=== PATIENT | male | born 1975 | race Caucasian/White ===

== ENCOUNTER 2019-01-12 17:55 | Emergency (ER) | payer OTHER ==
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
[2019-01-12] MEDS ORDERED: SODIUM CHLORIDE 0.9% 1,000 ML IV STA (19:21)
[2019-01-12] MEDS ORDERED: METOCLOPRAMIDE 5 MG/ML 2 ML VIAL IVP STA (19:21)
[2019-01-12] MEDS ORDERED: diphenhydrAMINE 50 MG/ML 1 ML VIAL IVP STA (19:21)
[2019-01-12] MEDS ORDERED: KETOROLAC 30 MG/ML 1 ML VIAL IVP STA (19:21)
[2019-01-12 20:31] VITALS: BP 132/90; PULSE 67; RESP 13; TEMP 97.6
--- NOTE | 2019-01-14 03:50 | ED ---
Medical Decision Making - Medical Decision Making Addendum to clarify the patient did not have a loss of consciousness. Disposition Clinical Impression: Headache Disposition: HOME SELF-CARE Condition: Stable Instructions (If sedation given, give patient instructions): Acute Headache (ED) Additional Instructions: Patient to adhere to previously discussed treatment plan and will take medication(s) as directed. Patient to follow up with PCP in 1-2 days. Patient to return to ED if symptoms do not improve. Follow-up with primary care provider tomorrow. Return to ED if condition worsens. Is patient prescribed a controlled substance at d/c from ED?: No Referrals: None,Stated [Primary Care Provider] - 1-2 days [facility] [NON-[facility]FF] - 1-2 days
== END 2019-01-12 20:20 | disposition home or self-care (01) ==
LOC: EC 17:55
DX: R51 Headache (principal); F17.200 Nicotine dependence, unspecified, uncomplicated; F19.10 Other psychoactive substance abuse, uncomplicated; Z86.14 Personal history of Methicillin resistant Staphylococcus aureus infection; Z87.820 Personal history of traumatic brain injury; Y04.2XXA Assault by strike against or bumped into by another person, initial encounter; Y92.89 Other specified places as the place of occurrence of the external cause
CPT/HCPCS: 72125; 70450; 96374; 96375 ×2; 96361; 99284; J1200; J2765; J1885

== ENCOUNTER 2019-06-30 16:20 | Emergency (ER) | payer OTHER ==
[2019-06-30 16:41] VITALS: BP 121/71; PULSE 83; RESP 18; TEMP 97.3
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
== END 2019-06-30 17:09 | disposition home or self-care (01) ==
LOC: EC 16:20
DX: Z02.89 Encounter for other administrative examinations (principal); F17.200 Nicotine dependence, unspecified, uncomplicated
CPT/HCPCS: 99282

== ENCOUNTER 2020-01-12 01:00 | Emergency (ER) | payer OTHER ==
[2020-01-12 01:15] VITALS: BP 129/85; PULSE 91; RESP 18; TEMP 98.2
[2020-01-12] MEDS ORDERED: PENICILLIN VK 500MG STARTER 4 TAB BTL PO STA (01:35)
[2020-01-12] MEDS ORDERED: ACET/COD 300 MG/30 MG STARTER PACK 6 TAB BTL PO STA (01:35)
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
== END 2020-01-12 02:05 | disposition home or self-care (01) ==
LOC: EC 01:00
DX: K04.7 Periapical abscess without sinus (principal); S02.5XXA Fracture of tooth (traumatic), initial encounter for closed fracture; R01.1 Cardiac murmur, unspecified; F17.200 Nicotine dependence, unspecified, uncomplicated; Z86.14 Personal history of Methicillin resistant Staphylococcus aureus infection; X58.XXXA Exposure to other specified factors, initial encounter
CPT/HCPCS: 99283

== ENCOUNTER 2022-09-25 11:03 | Emergency (ER) | payer OTHER ==
[2022-09-25 11:23] VITALS: PULSE 72
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
--- NOTE | 2022-09-25 13:17 | CT ---
EXAMINATION TYPE: CT facial bones wo con CT DLP: 540.6 mGycm, Automated exposure control for dose reduction was used. DATE OF EXAM: 09/25/2022 12:58 PM COMPARISON: 09/25/2022.. CLINICAL INDICATION:Male, 47 years old with history of left sided dental infection, Left sided dental infection TECHNIQUE: Brain: Axial CT images of the brain were obtained with coronal and sagittal reformats created and rev iewed. Contrast used: None. Oral contrast used: None. FINDINGS: Brain: Extra-axial spaces: No abnormal extra-axial fluid collections. Ventricular system: Within normal limits Cerebral parenchyma: No acute intraparenchymal hemorrhage or mass effect. The lopez-white junction is well differentiated. Cerebellum: Unremarkable. Mass effect: No evidence of midline shift. Intracranial vasculature: unremarkable Soft tissues: There is soft tissue swelling involving the left cheek with suspected periodontal absce ss measuring 18 x 11 mm. Evaluation is limited without IV contrast. Multiple roots in this region dem onstrate periapical lucency extending to the soft tissues. Calvarium/osseous structures: No depressed skull fracture. Paranasal sinuses and mastoid air cells: Mild scattered paranasal sinus disease. Visualized orbits: Orbital contents are intact. IMPRESSION: 1. Limited evaluation with phlegmonous change and suspected underlying abscess within the left cheek near the left superior alveolar ridge. These are felt to be secondary to periodontal disease. 2. No facial bone fracture.
[2022-09-25] MEDS ORDERED: AMPICILLIN-SULBACTAM 3 GM in SODIUM CHLORIDE 0.9% 100 ML IVPB SCH (13:45)
[2022-09-25 14:18] LABS: Basophils % (A) 0 %; Eosinophils # (A) 0.9 k/uL (0-0.7); Eosinophils % (A) 9 %; HCT 43.8 % (39.0-53.0); HGB 14.5 gm/dL (13.0-17.5); Lymphocytes # (A) 0.9 k/uL (1.0-4.8); Lymphocytes % (A) 10 %; MCH 29.7 pg (25.0-35.0); MCV 89.9 fL (80.0-100.0); Mean Platelet Volume 7.4; Monocytes # (A) 0.4 k/uL (0-1.0); Monocytes % (A) 4 %; Neutrophils % (A) 76 %; Platelet Count 278 k/uL (150-450); RBC 4.88 m/uL (4.30-5.90); RDW 12.5 % (11.5-15.5); WBC 9.3 k/uL (3.8-10.6)
[2022-09-25 14:27] LABS: ALT 24 U/L (4-49); AST 22 U/L (17-59); African American GFR (CKD) >90 (>60 ml/min/1.73 sqM); Albumin 3.9 g/dL (3.5-5.0); Alkaline Phosphatase 90 U/L (38-126); Anion Gap 6 mmol/L; Blood Urea Nitrogen 11 mg/dL (9-20); Carbon Dioxide 24 mmol/L (22-30); Chloride 108 mmol/L (98-107); Glucose 89 mg/dL (74-99); Non-African American GFR(CKD) >90 (>60 ml/min/1.73 sqM); Potassium 4.8 mmol/L (3.5-5.1); Sodium 138 mmol/L (137-145); Total Bilirubin 0.5 mg/dL (0.2-1.3); Total Protein 6.7 g/dL (6.3-8.2)
[2022-09-25 15:16] VITALS: BP 120/81; RESP 18; TEMP 98.6
== END 2022-09-25 15:16 | disposition home or self-care (01) ==
LOC: EC 11:03
DX: K04.7 Periapical abscess without sinus (principal); F12.90 Cannabis use, unspecified, uncomplicated; F17.200 Nicotine dependence, unspecified, uncomplicated; Z53.9 Procedure and treatment not carried out, unspecified reason
CPT/HCPCS: 36415; 80053; 83605; 85025; 70486; 99284; 96365; J0295